=== PATIENT | male | born 1975 | race Caucasian/White ===

== ENCOUNTER 2017-04-17 14:38 | Emergency (ER) | payer OTHER ==
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
[2017-04-17 16:02] VITALS: BP 140/86
[2017-04-17] MEDS ORDERED: IBUPROFEN 600 MG TABLET PO ONE (16:03)
[2017-04-17] MEDS ORDERED: ACETAMINOPHEN 325 MG TABLET PO ONE ×2 (16:04→16:07)
[2017-04-17] MEDS: IBUPROFEN 600 MG TABLET PO STA (16:05)
[2017-04-17] MEDS: ACETAMINOPHEN 325 MG TABLET PO STA (16:05)
--- NOTE | 2017-04-17 17:09 | XRAY Preliminary Report ---
Exam: XR Chest 2 View PA/LAT IMPRESSION: Normal 2-view chest radiography. [facility] SITE ID: [id number]
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
--- NOTE | 2017-04-17 17:14 | XRAY Preliminary Report ---
Exam: XR Hand 3 View RT IMPRESSION: Normal hand radiography. [facility] SITE ID: [id number]
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
== END 2017-04-17 17:30 | disposition home or self-care (01) ==
LOC: ED 14:38
DX: S63.641A Sprain of metacarpophalangeal joint of right thumb, initial encounter (principal); S20.211A Contusion of right front wall of thorax, initial encounter; V48.5XXA Car driver injured in noncollision transport accident in traffic accident, initial encounter; Y92.488 Other paved roadways as the place of occurrence of the external cause
CPT/HCPCS: 71020; 99283